=== PATIENT | male | born 1950 | race Caucasian/White ===

== ENCOUNTER 2017-08-22 05:58 | Day surgery (SDC) | payer MEDICARE, BC ==
[2017-08-21 08:34] LABS: HEMATOCRIT 44.1 % (42.0-54.0); HEMOGLOBIN 14.7 g/dL (13.5-17.5); MCH 30.1 pg (26.0-34.0); MCHC 33.3 g/dL (31.0-37.0); MCV 90.4 fL (80.0-100.0); RBC 4.88 10x6/uL (4.20-6.10); RDW 13.6 % (11.5-14.5); WBC 11.3 10x3/uL (4.8-10.8)
[2017-08-21 08:49] LABS: CALC OSMOLALITY 274 mosm/kg (275-300); CALCIUM 9.2 mg/dL (8.5-10.1); CARBON DIOXIDE 28.7 mmol/L (21.0-32.0); CHLORIDE - SERUM 101 mmol/L (98-107); GLUCOSE 107 mg/dL (74-106); POTASSIUM - SERUM 4.3 mmol/L (3.5-5.1); SODIUM 137 mmol/L (136-145); UREA NITROGEN 16 mg/dL (7-18); eGFR NON AFRICAN AMERICAN 79 mL/min (90-120)
[~2017-08-22] VITALS: Ht 172.7 cm; Wt 117.9 kg
--- NOTE | ~2017-08-22 | OP ---
PATIENT NAME: DORIAN BOWEN MEDICAL RECORD: [id number] :52 LOCATION:D[facility]OPS ADMISSION DATE: SURGEON: KORY MURILLO MD DATE OF OPERATION: 08/22/2017 PREOPERATIVE DIAGNOSIS: Medial meniscus tear of the left knee. POSTOPERATIVE DIAGNOSIS: Medial meniscus tear of the left knee. PROCEDURE: Arthroscopic partial medial meniscectomy. SURGEON: Kory Murillo MD ANESTHESIA: General. INTRAOPERATIVE COMPLICATIONS: None. SUMMARY OF PATHOLOGIC FINDINGS: The patient has a complex tear of the posterior horn of the medial meniscus consistent with preoperative MRI. OPERATIVE SUMMARY IN DETAIL: After obtaining the appropriate preoperative orthopedic surgery consent as well as anesthetic consultation, evaluation and clearance, the patient was brought to the operating room and placed on the operating table in supine position. After general laryngeal mask airway was administered, tourniquet was placed about the proximal aspect of the patient's left lower extremity. Left lower extremity was then prepped and draped in routine sterile fashion. The leg was elevated and exsanguinated, tourniquet inflated to 350 mmHg. Routine inferolateral portal was established followed by superomedial portal and inferomedial portal. Diagnostic arthroscopy showed the above findings. 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 A combination of a full-radius resector along with an arthroscopic meniscotome were utilized to debride the meniscus back to stable meniscal elements. The residual of the knee was in fairly good condition. The knee was then insufflated with 30 cc of 0.25% Marcaine with epinephrine and 80 mg of Depo-Medrol. Arthroscopy portals were closed in routine interrupted fashion using 4-0 Prolene. Sterile dressings were applied. The patient was awakened and taken to recovery room in stable condition. All final needle and sponge counts were correct. TRANSINT:[id number] Voice Confirmation ID: [id number] DOCUMENT ID: [id number] KORY MURILLO MD at 1657 CC: [id number] DICTATION DATE: 09/13/17 1502 HOG STOMACH PREPARER: 09/13/17 1542 [facility] [place] 08/22/17 [place] [id number]
[~2017-08-22 05:58] MED LIST: ALDACTONE25 MG PO; AMBIEN10 MG PO; ASPIRIN EC81 M1 PO; BUMEX 1 MG TAB1 MG PO; METOPROLOL TART50 MG PO; POTASSIUM CHLO10 ME1 PO
[2017-08-22 08:17] VITALS: BP 131/81; Ht 172.7 cm; Wt 117.9 kg
[2017-08-22] MEDS ORDERED: HYDROCODONE-APA1 TAB PO (10:24)
== END 2017-08-22 12:30 | disposition home or self-care (01) ==
LOC: D.OPS 05:58 → D.PAN 10:20 → D.OPS 11:45 → D.PAN 11:45 → D.OPS 12:30
PROVIDERS: Anesthesiology
DX: S83.242A Other tear of medial meniscus, current injury, left knee, initial encounter (principal); I10 Essential (primary) hypertension; Z01.812 Encounter for preprocedural laboratory examination

== ENCOUNTER → 2019-08-04 14:00 | Outpatient (CLI) | payer MEDICARE, BC ==
[2017-08-22 08:17] VITALS: BMI 39.6
[~2019-08-04 14:00] MED LIST changes: +HYDROCODONE-APA1 TAB PO
== END | disposition home or self-care (01) ==
LOC: D.CT 14:00
PROVIDERS: ATTEND Family Medicine
DX: R10.32 Left lower quadrant pain (principal)